=== PATIENT | female | born 1990 | race African-American/Black ===

== ENCOUNTER 2020-02-03 16:01 | Emergency (ER) | payer OTHER, SELFPAY ==
--- NOTE | ~2020-02-03 | XR_ITS ---
XR chest 1V portable DATE: 02/03/2020 16:20 INDICATION: Cough, shortness of breath, sore throat TECHNIQUE: Portable AP chest on 02/03/2020 at 1619 hours COMPARISON: None FINDINGS: Normal heart size. No hilar or mediastinal enlargement. No pulmonary infiltrate or consolid ation, pleural effusion or pulmonary vascular congestion or pneumothorax. IMPRESSION: No active cardiopulmonary disease Reviewed, dictated and finalized at location A.
--- NOTE | 2020-02-03 16:13 | ED.GENADULT ---
HPI - General Adult General Chief complaint: Fever Stated complaint: sob/cough/st Time Seen by Provider: 02/03/20 16:05 History of Present Illness HPI narrative: Patient presents via EMS for body aches and fever. She has been sick for a week, taking Tylenol for the temperature. She says all of her bones hurt her spine and her extremity, 10 out of 10. She has a dry cough. The Tylenol not helping with her pain. She says she has not eaten in 2 days, but was going to have an alcoholic beverage last night, and did not feel like it. She does not work, due to her multiple psychiatric diseases. Related Data Allergies Allergy/AdvReac Type Severity Reaction Status Date / Time No Known Allergies Allergy Unverified 09/03/17 09:30 Review of Systems Review of Systems: Narrative: CONSTITUTIONAL:Fever EYES: Denies visual changes, redness, or discharge. ENT: Denies rhinorrhea, congestion, sore throat, or otalgia. CARDIOVASCULAR: Denies chest pain, palpitations, or edema. RESPIRATORY: has cough and SOB GASTROINTESTINAL: Denies abdominal pain, nausea, vomiting, or diarrhea. GENITOURINARY: Denies dysuria or hematuria. SKIN: Denies rash or itching. MUSCULOSKELETAL: Back pain, myalgias. NEUROLOGIC: Denies headache, numbness, or weakness. PSYCHIATRIC: crying, clear speech PMFSH Surgical History Surgical History (Updated 02/03/20 @ 16:16 by Ritika Ashley MD) History of thyroidectomy Social History Social History (Updated 02/03/20 @ 16:16 by Ritika Ashley MD) Smoking status: Never smoker Alcohol intake: current Substance use: current Substance use type: marijuana Gender identity (if verbalized by the patient): Female Exam Narrative: Exam Narrative: GENERAL: Well-appearing, well-nourished, and in no acute distress. HEAD: Normocephalic, atraumatic. EYES: PERRLA and EOMI. ENT: Nares clear, no rhinorrhea or epistaxis. Mucous membranes moist. NECK: Supple. CHEST: Clear to auscultation. No respiratory distress. HEART: Regular rate and rhythm. No murmur heard. Normal peripheral pulses. ABDOMEN: Soft, nontender, nondistended, normal active bowel sounds. EXTREMITIES: Normal range of motion. No edema. SKIN: Warm, dry, no rash. NEURO: No focal deficits. Alert and oriented x3. PSYCH: crying out loud. Course Reevaluation(s) Reevaluation #1: Updated the patient that she does not have pneumonia and we are just waiting on her urine sample. Date: 02/03/20 Time: 16:52 Vital Signs Vital signs: Vital Signs Temperature 100.2 F H 02/03/20 16:16 Pulse Rate 86 02/03/20 16:16 Respiratory Rate 20 02/03/20 16:16 Blood Pressure 133/69 02/03/20 16:16 Pulse Oximetry 99 02/03/20 16:16 Temperature 100.2 F H 02/03/20 16:16 Pulse Rate 84 02/03/20 17:13 Respiratory Rate 19 02/03/20 17:13 Blood Pressure 120/77 02/03/20 17:13 Pulse Oximetry 100 02/03/20 17:13 Medical Decision Making Vital Signs Vital Signs: Vital Signs Temperature 100.2 F H 02/03/20 16:16 Pulse Rate 86 02/03/20 16:16 Respiratory Rate 20 02/03/20 16:16 Blood Pressure 133/69 02/03/20 16:16 Pulse Oximetry 99 02/03/20 16:16 Temperature 100.2 F H 02/03/20 16:16 Pulse Rate 84 02/03/20 17:13 Respiratory Rate 19 02/03/20 17:13 Blood Pressure 120/77 02/03/20 17:13 Pulse Oximetry 100 02/03/20 17:13 Lab Data Result diagrams: 02/03/20 16:20 02/03/20 16:20 Labs: Lab Results 02/03/20 02/03/20 Range/Units 16:20 16:20 WBC 10.5 H (4.5-10.0) K/mm3 RBC 4.75 (4.2-5.4) M/mm3 Hgb 11.8 L (12.0-15.0) g/dL Hct 35.4 L (37.0-47.0) % MCV 74.5 L (80-100) fl MCH 24.8 L (26-34) pg MCHC 33.3 (32-36) g/dl RDW 14.9 H (11.5-14.5) % Plt Count 249 (150-375) k/mm3 MPV 12.2 H (7.4-10.4) fl Immature Gran % (Auto) 0.5 (0-0.5) % Neut % (Auto) 77.2 H (45.5-73.1) % Lymph % (Auto) 14.1 L (18.3-44.2) % [place] % (Auto) 7.2 (2.6-8.5) % Eos % (
[2020-02-03 16:16] VITALS: BP 133/69; PULSE 86; RESP 20; TEMP 37.9; O2SAT 99
[2020-02-03] MEDS: IBUPROFEN 600 MG TABLET PO (16:24)
[2020-02-03 16:25] LABS: Basophils Percent Auto 0.3 % (0.2-1.2); Eosinophils Absolute Auto 0.1 K/mm3 (0-0.3); Eosinophils Percent Auto 0.7 % (0-4.4); Hematocrit 35.4 % (37.0-47.0); Hemoglobin 11.8 g/dL (12.0-15.0); Immature Granulocyte Absolute 0.05 K/mm3 (0.00-0.031); Immature Granulocyte Percent A 0.5 % (0-0.5); Lymphocytes Absolute Auto 1.48 K/mm3 (0.9-3.2); Lymphocytes Percent Auto 14.1 % (18.3-44.2); Mean Corpuscular HGB Conc 33.3 g/dl (32-36); Mean Corpuscular Hemoglobin 24.8 pg (26-34); Mean Corpuscular Volume 74.5 fl (80-100); Mean Platelet Volume 12.2 fl (7.4-10.4); Monocytes Absolute Auto 0.8 K/mm3 (0.1-0.6); Monocytes Percent Auto 7.2 % (2.6-8.5); Neutrophils Absolute Auto 8.1 K/mm3 (1.3-6.7); Neutrophils Percent Auto 77.2 % (45.5-73.1); Platelet Count Result 249 k/mm3 (150-375); Red Blood Count 4.75 M/mm3 (4.2-5.4); Red Cell Distribution Width 14.9 % (11.5-14.5); White Blood Count 10.5 K/mm3 (4.5-10.0)
[2020-02-03 16:38] LABS: Alanine Aminotransferase 16 U/L (4-35); Albumin Level 4.1 g/dL (3.5-5.1); Alkaline Phosphatase 72 U/L (38-126); Aspartate Amino Transferase 21 U/L (14-36); Bilirubin,Total 1.2 mg/dL (0.2-1.3); Blood Urea Nitrogen 7 mg/dL (7-17); Carbon Dioxide 24 mmol/L (22-30); Chloride 103 mmol/L (98-107); Estimated CRCL calculation 106 ml/min; Estimated Glomerular Filt Rate > 60; Glucose 95 mg/dL (65-105); Potassium 3.6 mmol/L (3.4-5.0); Sodium 134 mmol/L (137-145)
--- NOTE | 2020-02-03 16:57 | PC.NURSE ---
Pt went to restroom to give sample, per lift team technician pt was unable to catch urine in cup. She was unable to stop flow and missed the cup. lift team technician informed Dr. Ashley.
[2020-02-03 17:13] VITALS: BP 120/77; PULSE 84; RESP 19; O2SAT 100
== END 2020-02-03 17:15 | disposition home or self-care (01) ==
PROVIDERS: Emergency Provider Emergency Medicine
DX: R50.9 Fever, unspecified (principal); R05 Cough; M79.10 Myalgia, unspecified site; E89.0 Postprocedural hypothyroidism
CPT/HCPCS: 36415; 71045; 80053; 85025; 87804; 99283; A9270